=== PATIENT | male | born 1980 | race African-American/Black ===

== ENCOUNTER 2021-08-30 09:23 | Emergency (ER) | payer OTHER, MEDICAID ==
[~2021-08-30] VITALS: Ht 172.7 cm; Wt 73.0 kg
[2021-08-30 09:27] VITALS: BP 122/70
[2021-08-30] MEDS ORDERED: IBUPROFEN 600MG TABLET PO ONE (10:30)
== END 2021-08-30 11:06 ==
LOC: ER 09:35
DX: S60.221A Contusion of right hand, initial encounter (principal); F12.10 Cannabis abuse, uncomplicated; Y04.0XXA Assault by unarmed brawl or fight, initial encounter; Y93.89 Activity, other specified; Y92.89 Other specified places as the place of occurrence of the external cause; Y99.8 Other external cause status
CPT/HCPCS: 73130; 99283; C1893